=== PATIENT | male | born 1955 | race Caucasian/White ===

== ENCOUNTER 2019-06-01 12:34 | Emergency (ER) | payer BC, MEDICARE ==
[2019-06-01] MEDS ORDERED: Zofran 4 MG/2 ML VIAL IV ONE (12:37)
[2019-06-01] MEDS ORDERED: Sodium Chloride 0.9% 1000 ML 1,000 ML IV STA ×2 (12:37→15:08)
--- NOTE | 2019-06-01 12:37 | ERPHSYRPT ---
- History of Present Illness Time Seen by Provider: 06/01/19 12:36 Source: patient Exam Limitations: no limitations Physician History: 64 y/o white male presents with dizziness, vomiting and weakness since this am. pt was fine last pm. pt woke up and he was still but room was spinning. pt vomited several times this am. pt denies cp, denies soa, denies abd pain. never had this before. did not hit her head. pt went to walk in clinic and had a vagal reaction. pt brought to ED. pts cardiac cath 4 years ago was normal. pt is feeling well now and dizziness gone. Timing/Duration: today Severity: moderate Character of Deficits: new weakness (generalized) Deficits: no difficulties Baseline/Normal Cognition: alert oriented x 3 Current Cognition: alert oriented x 3 Baseline Gait: walks w/o assistance Associated Symptoms: nausea, vomiting, weakness, other (dizziness) Allergies/Adverse Reactions: prednisone Adverse Reaction (Intermediate, Verified 06/01/19 12:48) Hx Tetanus, Diphtheria Vaccination/Date Given: No Hx Influenza Vaccination/Date Given: No Hx Pneumococcal Vaccination/Date Given: No - Review of Systems Constitutional: No Symptoms Eyes: No Symptoms Ears, Nose, & Throat: No Symptoms Respiratory: No Symptoms Cardiac: No Symptoms Abdominal/Gastrointestinal: No Symptoms Genitourinary Symptoms: No Symptoms Musculoskeletal: No Symptoms Skin: No Symptoms Neurological: Dizziness Psychological: No Symptoms Endocrine: No Symptoms Hematologic/Lymphatic: No Symptoms Immunological/Allergic: No Symptoms All Other Systems: Reviewed and Negative - Past Medical History Pertinent Past Medical History: No Neurological History: No Pertinent History ENT History: No Pertinent History Cardiac History: No Pertinent History Respiratory History: No Pertinent History Endocrine Medical History: No Pertinent History Musculoskeletal History: No Pertinent History GI Medical History: No Pertinent History History: No Pertinent History Psycho-Social History: No Pertinent History Male Reproductive Disorders: No Pertinent History - Past Surgical History Past Surgical History: Yes Neuro Surgical History: No Pertinent History Cardiac: No Pertinent History, Cardiac Catheterization Respiratory: No Pertinent History Gastrointestinal: No Pertinent History Genitourinary: No Pertinent History Musculoskeletal: Orthopedic Surgery Male Surgical History: No Pertinent History Other Surgical History: right shoulder - Social History Smoking Status: Never smoker Exposure to second hand smoke: No Drug Use: none Patient Lives Alone: No - Nursing Vital Signs Nursing Vital Signs: Initial Vital Signs Temperature 97.0 F 06/01/19 12:36 Pulse Rate 78 08/13/19 12:36 Respiratory Rate 22 06/01/19 12:36 Blood Pressure 132/87 06/01/19 12:36 O2 Sat by Pulse Oximetry 97 06/01/19 12:36 Pain Scale Pain Intensity 0 - [place] Coma Scale Best Eye Response (Roberta): (4) open spontaneously Best Verbal Response (Roberta): (5) oriented Best Motor Response ([place]): (6) obeys commands Roberta Total: 15 - Physical Exam General Appearance: no apparent distress, alert, anxiety Eye Exam: bilateral eye: normal inspection, PERRL, EOMI Ears, Nose, Throat Exam: normal ENT inspection, moist mucous membranes Neck Exam: normal inspection, non-tender, supple, full range of motion Respiratory: normal breath sounds, lungs clear, airway intact, No chest tenderness, No respiratory distress Cardiovascular: regular rate/rhythm, normal heart sounds, normal peripheral pulses Gastrointestinal: soft, normal bowel sounds, No tenderness Rectal Exam: not done Back Exam: normal inspection, normal range of motion, No CVA tenderness, No vertebral tenderness Extremity Exam: normal inspection, normal range of motion, pelvis stable Mental Status: alert, oriented x 3, cooperative consulting technical manager Exam: normal hearing, normal speech, PERRL Coordination/Gait: normal finger to nose, normal gait, normal cerebellar function Motor/Sensory: no motor deficit, no sensory deficit, no pronator drift Skin Exam: normal color, warm, dry SpO2 Interpretation: normal O2 Delivery: Room Air - Course Nursing assessment & vital signs reviewed: Yes EKG Interpreted by Me: RATE (78), Sinus Rhythm, NORMAL AXIS, NORMAL INTERVALS, NORMAL QRS, Other (comparison 05/29/11 no changes. ) Ordered Tests: Active Orders 24 hr Category Date Time Status Tipple Mechanic STAT Care 06/01/19 12:38 Active EKG-ER Only STAT Care 06/01/19 12:37 Active IV Insertion STAT Care 06/01/19 12:37 Active HEAD WITHOUT CONTRAST [CT] Stat Exams 06/01/19 12:37 Completed CBC W DIFF Stat Lab 06/01/19 12:35 Completed CMP Stat Lab 06/01/19 12:35 Completed Glucose,Critical Care Urgent Lab 06/01/19 12:37 Completed MAGNESIUM Stat Lab 06/01/19 12:35 Completed TROPONIN Q3H Lab 06/01/19 12:35 Completed TROPONIN Q3H Lab 06/01/19 15:45 Ordered TROPONIN Q3H Lab 06/01/19 18:45 Ordered TROPONIN Q3H Lab 06/01/19 21:45 Ordered TROPONIN Q3H Lab 06/02/19 00:45 Ordered UA W/RFX UR CULTURE Stat Lab 06/01/19 14:15 Completed Medication Summary Discontinued Medications Generic Name Dose Route Start Last Admin Trade Name Vaishnavi PRN Reason Stop Dose Admin Sodium Chloride 1,000 mls @ 999 mls/hr 06/01/19 12:37 06/01/19 13:58 Sodium Chloride 0.9% 1000 Ml IV 06/01/19 13:37 Infused .Q1H1M STA Infusion Ondansetron HCl 4 mg 06/01/19 12:37 06/01/19 12:57 Zofran 4 Mg/2 Ml Vial IV 06/01/19 12:38 4 mg STAT ONE Administration Lab/Rad Data: Laboratory Result Diagrams 06/01/19 12:35 06/01/19 12:35 Laboratory Results 06/01/19 06/01/19 06/01/19 Range/Units 14:15 12:37 12:35 WBC (4.0-10.5) K/mm3 RBC (4.1-5.6) M/mm3 Hgb (12.5-18.0) gm/dl Hct (42-50) % MCV (78-100) fl MCH (26-32) pg MCHC (32-36) g/dl RDW (11.5-14.0) % Plt Count (150-450) K/mm3 MPV (6-9.5) fl Gran % (36.0-66.0) % Eos # (Auto) (0-0.5) Absolute Lymphs (auto) (1.0-4.6) Absolute Monos (auto) (0.0-1.3) Lymphocytes % (24.0-44.0) % Monocytes % (0.0-12.0) % Eosinophils % (0.00-5.0) % Basophils % (0.0-0.4) % Absolute Granulocytes (1.4-6.9) Basophils # (0-0.4) Sodium (137-145) mmol/L Potassium (3.5-5.1) mmol/L Chloride (98-107) mmol/L Carbon Dioxide (22-30) mmol/L Anion Gap (5-15) MEQ/L BUN (9-20) mg/dL Creatinine (0.66-1.25) mg/dL Estimated GFR ML/MIN Glucose 126 H (74-106) mg/dL Calcium (8.4-10.2) mg/dL Magnesium (1.6-2.3) mg/dL Total Bilirubin (0.2-1.3) mg/dL AST (17-59) U/L ALT (0-50) U/L Alkaline Phosphatase (38-126) U/L Troponin I < 0.012 (0.000-0.034) ng/mL Serum Total Protein (6.3-8.2) g/dL Albumin (3.5-5.0) g/dL Urine Color YELLOW (YELLOW) Urine Appearance CLEAR (CLEAR) Urine pH 9.0 (5-6) Ur Specific Whitney 1.011 (1.005-1.025) Urine Protein NEGATIVE (Negative) Urine Ketones TRACE (NEGATIVE) Urine Blood NEGATIVE (0-5) Frederick/ul Urine Nitrite NEGATIVE (NEGATIVE) Urine Bilirubin NEGATIVE (NEGATIVE) Urine Urobilinogen NEGATIVE (0-1) mg/dL Ur Leukocyte Esterase NEGATIVE (NEGATIVE) Urine WBC (Auto) 0-2 (0-5) /HPF Urine RBC (Auto) NONE (0-2) /HPF U Epithel Cells (Auto) NONE (FEW) /HPF Urine Bacteria (Auto) NONE (NEGATIVE) /HPF Urine Mucus (Auto) SLIGHT (NEGATIVE) /HPF Urine Culture Reflexed NO (NO) Urine Glucose 50 (NEGATIVE) mg/dL 06/01/19 06/01/19 Range/Units 12:35 12:35 WBC 11.5 H (4.0-10.5) K/mm3 RBC 5.60 (4.1-5.6) M/mm3 Hgb 17.1 (12.5-18.0) gm/dl Hct 48.1 (42-50) % MCV 85.9 (78-100) fl MCH 30.5 (26-32) pg MCHC 35.6 (32-36) g/dl RDW 13.5 (11.5-14.0) % Plt Count 245 (150-450) K/mm3 MPV 10.0 H (6-9.5) fl Gran % 78.8 H (36.0-66.0) % Eos # (Auto) 0.04 (0-0.5) Absolute Lymphs (auto) 1.73 (1.0-4.6) Absolute Monos (auto) 0.63 (0.0-1.3) Lymphocytes % 15.1 L (24.0-44.0) % Monocytes % 5.5 (0.0-12.0) % Eosinophils % 0.3 (0.00-5.0) % Basophils % 0.3 (0.0-0.4) % Absolute Granulocytes 9.03 H (1.4-6.9) Basophils # 0.03 (0-0.4) Sodium 142 (137-145) mmol/L Potassium 4.2 (3.5-5.1) mmol/L Chloride 108 H (98-107) mmol/L Carbon Dioxide 25 (22-30) mmol/L Anion Gap 12.6 (5-15) MEQ/L BUN 19 (9-20) mg/dL Creatinine 0.70 (0.66-1.25) mg/dL Estimated GFR > 60.0 ML/MIN Glucose 129 H (74-106) mg/dL Calcium 9.8 (8.4-10.2) mg/dL Magnesium 2.0 (1.6-2.3) mg/dL Total Bilirubin 1.10 (0.2-1.3) mg/dL AST 37 (17-59) U/L ALT 45 (0-50) U/L Alkaline Phosphatase 102 (38-126) U/L Troponin I (0.000-0.034) ng/mL Serum Total Protein 8.2 (6.3-8.2) g/dL Albumin 4.4 (3.5-5.0) g/dL Urine Color (YELLOW) Urine Appearance (CLEAR) Urine pH (5-6) Ur Specific Whitney (1.005-1.025) Urine Protein (Negative) Urine Ketones (NEGATIVE) Urine Blood (0-5) Frederick/ul Urine Nitrite (NEGATIVE) Urine Bilirubin (NEGATIVE) Urine Urobilinogen (0-1) mg/dL Ur Leukocyte Esterase (NEGATIVE) Urine WBC (Auto) (0-5) /HPF Urine RBC (Auto) (0-2) /HPF U Epithel Cells (Auto) (FEW) /HPF Urine Bacteria (Auto) (NEGATIVE) /HPF Urine Mucus (Auto) (NEGATIVE) /HPF Urine Culture Reflexed (NO) Urine Glucose (NEGATIVE) mg/dL - Progress Progress: improved, re-examined Progress Note: 06/01/19 15:00 pt states no cp, no soa, no abd pain, no dizziness and no nausea. pt wants to go home. Counseled pt/family regarding: lab results, diagnosis, need for follow-up, rad results - Departure Departure Disposition: Home Clinical Impression: Dizziness, Vomiting Condition: Stable Critical Care Time: No Referrals: JOSÉ SILVA [ACTIVE STAFF] - Additional Instructions: drink plenty of fluids. return to ED if symptoms recur. follow up with primary doctor tomorrow for further management Prescriptions: Ondansetron ODT 4 MG [Zofran Odt 4 mg] 4 mg PO Q6H PRN PRN #10 tab.rapdis PRN Reason: Vomiting
[2019-06-01 12:53] LABS: BASOPHIL % 0.3 % (0.0-0.4); Basophil (Absolute #) 0.03 (0-0.4); Eosinophil % 0.3 % (0.00-5.0); Eosinophil (Absolute #) 0.04 (0-0.5); Granulocyte Absolute (ANC) 9.03 (1.4-6.9); Granulocytes % 78.8 % (36.0-66.0); Hematocrit 48.1 % (42-50); Hemoglobin 17.1 gm/dl (12.5-18.0); Lymphocyte (Absolute #) 1.73 (1.0-4.6); Lymphocytes % 15.1 % (24.0-44.0); Mean Cell Volume 85.9 fl (78-100); Mean Corpuscular Hemoglobin 30.5 pg (26-32); Mean Corpuscular Hgb Concent. 35.6 g/dl (32-36); Monocyte (Absolute #) 0.63 (0.0-1.3); Monocytes % 5.5 % (0.0-12.0); Platelet Count 245 K/mm3 (150-450); Red Cell Distribution Width 13.5 % (11.5-14.0); White Blood Count 11.5 K/mm3 (4.0-10.5)
[2019-06-01 13:02] LABS: ALBUMIN 4.4 g/dL (3.5-5.0); ALKALINE PHOSPHATASE 102 U/L (38-126); ANION GAP 12.6 MEQ/L (5-15); BLOOD UREA NITROGEN 19 mg/dL (9-20); CHLORIDE 108 mmol/L (98-107); Calcium 9.8 mg/dL (8.4-10.2); Carbon Dioxide 25 mmol/L (22-30); Glucose 129 mg/dL (74-106); Potassium 4.2 mmol/L (3.5-5.1); SGOT/AST 37 U/L (17-59); SGPT/ALT 45 U/L (0-50); SODIUM 142 mmol/L (137-145); Total Protein 8.2 g/dL (6.3-8.2)
--- NOTE | 2019-06-01 13:11 | XRAY ---
Indication: Dizziness and vomiting. Multiple contiguous axial images obtained through the head without contrast. Comparison: May 29, 2011. Again normal appearing brain parenchyma, ventricles, and bony calvarium. Visualized paranasal sinuses and mastoid air cells are clear. Impression: Normal CT head without contrast exam. CT DI 68.51
[2019-06-01 14:23] LABS: Appearance CLEAR (CLEAR); Bilirubin NEGATIVE (NEGATIVE); Blood NEGATIVE Ery/ul (0-5); Glucose 50 mg/dL (NEGATIVE); Ketones TRACE (NEGATIVE); Leukocyte Esterase NEGATIVE (NEGATIVE); Mucus SLIGHT /HPF (NEGATIVE); Nitrite NEGATIVE (NEGATIVE); Protein,Urine Dip NEGATIVE (Negative); Specific Gravity 1.011 (1.005-1.025); Urobilinogen NEGATIVE mg/dL (0-1); WBC 0-2 /HPF (0-5)
[2019-06-01] MEDS ORDERED: ANTIVERT 25 MG PO ONE (15:08)
[2019-06-01] MEDS ORDERED: Sodium Chloride 0.9% 1000 ML 1,000 ML ONE (15:13)
[2019-06-01] MEDS ORDERED: ANTIVERT 25 MG ONE (15:13)
[2019-06-01 18:23] VITALS: BP 130/92; PULSE 85; O2SAT 96
== END 2019-06-01 18:47 | disposition home or self-care (01) ==
LOC: ED 12:34
DX: R42 Dizziness and giddiness (principal); R11.10 Vomiting, unspecified
CPT/HCPCS: 36000; 36415; 70450; 80053; 81001; 82947; 82962; 83735; 84484; 85025; 93005; 93041; 96360; 96361; 96374; 99285; J2405; A9270-GY

== ENCOUNTER 2021-09-06 00:15 | Observation (INO) | payer MEDICARE ==
--- NOTE | 2021-09-06 00:23 | ERPHSYRPT ---
- History of Present Illness Time Seen by Provider: 09/06/21 00:27 Historian: patient Exam Limitations: no limitations Physician History: Patient is a 66-year-old male presents to our ED with complaints of substernal chest pain. Chest pain started just prior to arrival while he was sleeping. Pain was initially 8 out of 10. However upon arrival pain had decreased to 4 out of 10. Patient took Tums prior to arrival. No associated nausea or vomiting. No diaphoresis. No rash. No trauma no fever. Patient voices no other complaints concerns at this time. Timing/Duration: today Activities at Onset: none Quality: sharpness Location: substernal Chest Pain Radiation: no radiation Severity of Pain-Max: moderate Severity of Pain-Current: mild Modifying Factors: Improves With: nothing Associated Symptoms: No nausea, No vomiting, No shortness of breath, No cough, No hurts to breathe, No diaphoresis, No headache, No dizziness, No edema Prior Chest Pain/Cardiac Workup: no prior chest pain Nitro Today/Relief: no nitro taken today Aspirin Treatment Today: no aspirin today Allergies/Adverse Reactions: prednisone Adverse Reaction (Intermediate, Verified 09/06/21 02:39) Home Medications: No Reportable Medications [No Reported Medications] 09/06/21 [History] Hx Tetanus, Diphtheria Vaccination/Date Given: No Hx Influenza Vaccination/Date Given: No Hx Pneumococcal Vaccination/Date Given: No - Review of Systems Constitutional: No Symptoms, No Fever, No Chills Eyes: No Symptoms Ears, Nose, & Throat: No Symptoms Respiratory: No Symptoms, No Cough, No Dyspnea Cardiac: No Symptoms, No Chest Pain, No Edema, No Syncope Abdominal/Gastrointestinal: No Symptoms, No Abdominal Pain, No Nausea, No Vomiting, No Diarrhea Genitourinary Symptoms: No Symptoms, No Dysuria Musculoskeletal: No Symptoms, No Back Pain, No Neck Pain Skin: No Symptoms, No Rash Neurological: No Symptoms, No Dizziness, No Focal Weakness, No Sensory Changes Psychological: No Symptoms Endocrine: No Symptoms Hematologic/Lymphatic: No Symptoms Immunological/Allergic: No Symptoms All Other Systems: Reviewed and Negative - Past Medical History Pertinent Past Medical History: No Neurological History: No Pertinent History ENT History: No Pertinent History Cardiac History: No Pertinent History Respiratory History: No Pertinent History Endocrine Medical History: No Pertinent History Musculoskeletal History: No Pertinent History GI Medical History: No Pertinent History History: No Pertinent History Psycho-Social History: No Pertinent History Male Reproductive Disorders: No Pertinent History - Past Surgical History Past Surgical History: Yes Neuro Surgical History: No Pertinent History Cardiac: No Pertinent History, Cardiac Catheterization Respiratory: No Pertinent History Gastrointestinal: No Pertinent History Genitourinary: No Pertinent History Musculoskeletal: Orthopedic Surgery Male Surgical History: No Pertinent History Other Surgical History: right shoulder - Social History Smoking Status: Never smoker Exposure to second hand smoke: No Drug Use: none Patient Lives Alone: No - Nursing Vital Signs Nursing Vital Signs: Initial Vital Signs Temperature 97.7 F 09/06/21 00:16 Pulse Rate 75 09/06/21 00:16 Respiratory Rate 20 09/06/21 00:16 Blood Pressure 155/91 09/06/21 00:16 O2 Sat by Pulse Oximetry 98 09/06/21 00:16 Pain Scale Pain Intensity 0 - Physical Exam General Appearance: no apparent distress, alert Eye Exam: PERRL/EOMI, eyes nml inspection Ears, Nose, Throat Exam: normal ENT inspection, TMs normal, pharynx normal, moist mucous membranes Neck Exam: normal inspection, non-tender, supple, full range of motion Respiratory Exam: normal breath sounds, lungs clear, airway intact, No chest tenderness, No respiratory distress Cardiovascular Exam: regular rate/rhythm, normal heart sounds, normal peripheral pulses Gastrointestinal/Abdomen Exam: soft, No tenderness, No mass Back Exam: normal inspection, No CVA tenderness, No vertebral tenderness Extremity Exam: normal inspection, normal range of motion Neurologic Exam: alert, oriented x 3, cooperative, normal mood/affect, sensation nml, No motor deficits Skin Exam: normal color, warm, dry Lymphatic Exam: No adenopathy SpO2 Interpretation: normal SpO2: 98 O2 Delivery: Room Air - Course Nursing assessment & vital signs reviewed: Yes EKG Interpreted by Me: RATE (73), Sinus Rhythm, NORMAL AXIS, NORMAL INTERVALS - Radiology Exams Chest X-ray Interpretation: Interpreted by me (Normal chest x-ray) Ordered Tests: Active Orders 24 hr Category Date Time Status Training And Development Assistant STAT Care 09/06/21 00:23 Active EKG-ER Only STAT Care 09/06/21 00:22 Active IV Insertion STAT Care 09/06/21 00:22 Active Pulse Oximetry (ED) STAT Care 09/06/21 00:22 Active CHEST 1 VIEW (PORTABLE) Stat Exams 09/06/21 00:23 Taken CBC W DIFF Stat Lab 09/06/21 00:22 Completed CMP Stat Lab 09/06/21 00:22 Completed Manual Differential NC Stat Lab 09/06/21 00:22 Completed TROPONIN Q3H Lab 09/06/21 00:22 Completed TROPONIN Q3H Lab 09/06/21 03:30 Ordered TROPONIN Q3H Lab 09/06/21 06:30 Ordered TROPONIN Q3H Lab 09/06/21 09:30 Ordered TROPONIN Q3H Lab 09/06/21 12:30 Ordered Transfer Order Routine Transfer 09/06/21 Ordered Medication Summary Discontinued Medications Generic Name Dose Route Start Last Admin Trade Name Freq PRN Reason Stop Dose Admin Aspirin 324 mg 09/06/21 00:28 09/06/21 00:55 Aspirin 81 Mg Tab.Chew PO 09/06/21 00:29 324 mg STAT ONE Administration Aspirin Confirm 09/06/21 00:54 Aspirin 81 Mg Tab.Chew Administered 09/06/21 00:55 Dose 324 mg .ROUTE .STK-MED ONE Nitroglycerin 1 gm 09/06/21 00:29 09/06/21 00:55 Nitroglycerin 1 Gm Packet TOP 09/06/21 00:30 1 gm STAT ONE Administration Nitroglycerin Confirm 09/06/21 00:54 Nitroglycerin 1 Gm Packet Administered 09/06/21 00:55 Dose 1 gm .ROUTE .STK-MED ONE Lab/Rad Data: Laboratory Result Diagrams 09/06/21 00:22 09/06/21 00:22 Laboratory Results 09/06/21 09/06/21 09/06/21 Range/Units 01:40 00:22 00:22 WBC (4.0-10.5) K/mm3 RBC (4.1-5.6) M/mm3 Hgb (12.5-18.0) gm/dl Hct (42-50) % MCV (78-100) fl MCH (26-32) pg MCHC (32-36) g/dl RDW (11.5-14.0) % Plt Count (150-450) K/mm3 MPV (7.5-11.0) fl Segmented Neutrophils (36.-66.) % Lymphocytes (Manual) (24-44) % Monocytes (Manual) (0.0-12.0) % Eosinophils (Manual) (0.00-3.0) % Basophils (Manual) (0.0-1.0) % Atypical Lymphocytes % Platelet Estimate (NORMAL) RBC Morphology Sodium 137 (137-145) mmol/L Potassium 4.1 (3.5-5.1) mmol/L Chloride 106 (98-107) mmol/L Carbon Dioxide 21 L (22-30) mmol/L Anion Gap 14.7 (5-15) MEQ/L BUN 17 (9-20) mg/dL Creatinine 0.60 L (0.66-1.25) mg/dL Estimated GFR > 60.0 ML/MIN Glucose 112 H (74-106) mg/dL Calcium 8.9 (8.4-10.2) mg/dL Total Bilirubin 1.00 (0.2-1.3) mg/dL AST 60 H (17-59) U/L ALT 58 H (0-50) U/L Alkaline Phosphatase 75 (38-126) U/L Troponin I < 0.012 (0.000-0.034) ng/mL Serum Total Protein 7.7 (6.3-8.2) g/dL Albumin 4.2 (3.5-5.0) g/dL Influenza Type A Ag NEGATIVE (NEGATIVE) Influenza Type B Ag NEGATIVE (NEGATIVE) RSV (PCR) NEGATIVE (Negative) SARS-CoV-2 (PCR) NEGATIVE (NEGATIVE) 09/06/21 Range/Units 00:22 WBC 7.8 (4.0-10.5) K/mm3 RBC 5.14 (4.1-5.6) M/mm3 Hgb 16.6 (12.5-18.0) gm/dl Hct 45.1 (42-50) % MCV 87.7 (78-100) fl MCH 32.3 H (26-32) pg MCHC 36.8 H (32-36) g/dl RDW 12.9 (11.5-14.0) % Plt Count 281 (150-450) K/mm3 MPV 10.0 (7.5-11.0) fl Segmented Neutrophils 69 H (36.-66.) % Lymphocytes (Manual) 25 (24-44) % Monocytes (Manual) 2 (0.0-12.0) % Eosinophils (Manual) 2 (0.00-3.0) % Basophils (Manual) 1 (0.0-1.0) % Atypical Lymphocytes 1 % Platelet Estimate NORMAL (NORMAL) RBC Morphology NORMAL Sodium (137-145) mmol/L Potassium (3.5-5.1) mmol/L Chloride (98-107) mmol/L Carbon Dioxide (22-30) mmol/L Anion Gap (5-15) MEQ/L BUN (9-20) mg/dL Creatinine (0.66-1.25) mg/dL Estimated GFR ML/MIN Glucose (74-106) mg/dL Calcium (8.4-10.2) mg/dL Total Bilirubin (0.2-1.3) mg/dL AST (17-59) U/L ALT (0-50) U/L Alkaline Phosphatase (38-126) U/L Troponin I (0.000-0.034) ng/mL Serum Total Protein (6.3-8.2) g/dL Albumin (3.5-5.0) g/dL Influenza Type A Ag (NEGATIVE) Influenza Type B Ag (NEGATIVE) RSV (PCR) (Negative) SARS-CoV-2 (PCR) (NEGATIVE) - Progress Progress: improved Air Movement: good Progress Note: Case discussed with Dr. Guan who accepts admission to observation. Plan of care discussed with patient. He agrees to admission [facility] for further evaluation and treatment of chest pain.. Patient is Covid negative. Portions of this note were created with voice recognition technology. There may be grammatical, spelling, punctuation or sound alike errors 09/06/21 02:41 09/06/21 02:43 Blood Culture(s) Obtained: No Antibiotics given: No Discussed with : Deborah Will see patient in: hospital (observation) Counseled pt/family regarding: lab results, diagnosis, rad results - Departure Departure Disposition: Observation Clinical Impression: ACS (acute coronary syndrome), Chest pain Condition: Stable Critical Care Time: No Referrals: PHILPI GUAN MD [Primary Care Provider] - Follow up/PCP as directed Additional Instructions: Discharge/Care Plan GIRISH PANTOJA was seen on 09/06/21 in the Emergency Room. The patient was counseled regarding Diagnosis,Lab results, Imaging studies, need for follow up and when to return to the Emergency Room. Prescriptions given: Discharge Note I have spoken with the patient and/or caregivers. I have explained the patient's condition, diagnosis and treatment plan based on the information available to me at this time. I have answered the patient's and/or caregiver's questions and addressed any concerns. The patient and/or caregivers have as good understanding of the patient's diagnosis, condition and treatment plan as can be expected at this point. The vital signs have been stable. The patient's condition is stable and appropriate for discharge from the emergency department. The patient will pursue further outpatient evaluation with the primary care physician or other designated or consulting physician as outlined in the discharge instructions. The patient and/or caregivers are agreeable to this plan of care and follow-up instructions have been explained in detail. The patient and/or caregivers have received these instruction. The patient/and or caregivers are aware that any significant change in condition or worsening of symptoms should prompt an immediate return to this or the closest emergency department or call 911.
[2021-09-06] MEDS ORDERED: BABY ASPIRIN 81 MG CHEW PO ONE (00:28)
[2021-09-06] MEDS ORDERED: NITRO-BID 2% UD PACKETS TOP ONE (00:29)
[2021-09-06 00:39] LABS: Hematocrit 45.1 % (42-50); Hemoglobin 16.6 gm/dl (12.5-18.0); Mean Cell Volume 87.7 fl (78-100); Mean Corpuscular Hemoglobin 32.3 pg (26-32); Mean Corpuscular Hgb Concent. 36.8 g/dl (32-36); Platelet Count 281 K/mm3 (150-450); Red Blood Count 5.14 M/mm3 (4.1-5.6); Red Cell Distribution Width 12.9 % (11.5-14.0); White Blood Count 7.8 K/mm3 (4.0-10.5)
[2021-09-06 00:50] LABS: ALBUMIN 4.2 g/dL (3.5-5.0); ALKALINE PHOSPHATASE 75 U/L (38-126); ANION GAP 14.7 MEQ/L (5-15); BLOOD UREA NITROGEN 17 mg/dL (9-20); CHLORIDE 106 mmol/L (98-107); Calcium 8.9 mg/dL (8.4-10.2); Carbon Dioxide 21 mmol/L (22-30); EST GLOMERULAR FILTRATION RATE > 60.0 ML/MIN; Glucose 112 mg/dL (74-106); Potassium 4.1 mmol/L (3.5-5.1); SGOT/AST 60 U/L (17-59); SGPT/ALT 58 U/L (0-50); SODIUM 137 mmol/L (137-145); Total Protein 7.7 g/dL (6.3-8.2)
[2021-09-06] MEDS ORDERED: NITRO-BID 2% UD PACKETS ONE (00:54)
[2021-09-06] MEDS ORDERED: BABY ASPIRIN 81 MG CHEW ONE (00:54)
[2021-09-06 01:20] LABS: ATYPICAL LYMPHS 1 %; Basophil 1 % (0.0-1.0); Eosinophil 2 % (0.00-3.0); Lymphocytes 25 % (24-44); Monocyte 2 % (0.0-12.0); Neutrophils 69 % (36.-66.); Platelet Estimate NORMAL (NORMAL); Total Cells Counted 100
[2021-09-06 02:23] LABS: INFLUENZA A NEGATIVE (NEGATIVE); INFLUENZA B NEGATIVE (NEGATIVE); RESPIRATORY SYNCTIAL VIRUS NEGATIVE (Negative); SARS-CoV-2 Xpert Express NEGATIVE (NEGATIVE)
[2021-09-06] MEDS ORDERED: TYLENOL 325 MG PO PRN (02:57)
[2021-09-06] MEDS ORDERED: MAALOX ES 30 ML UNIT DOSE PO PRN (02:57)
[2021-09-06] MEDS ORDERED: MILK OF MAGNESIA 30 ML PO PRN (02:57)
[2021-09-06] MEDS ORDERED: Zofran 4 MG/2 ML VIAL IV PRN (02:57)
[2021-09-06] MEDS ORDERED: Senokot-S Tablet PO PRN (02:57)
[2021-09-06 06:56] LABS: Risk Ratio 9.6
--- NOTE | 2021-09-06 08:06 | PCM.SSS ---
History of Present Illness - Chief Complaint Chief Complaint: Chest Pain History of Present Illness: is a 66 year old male with no known medical problems, he awoke last with sudden onset of sharp chest pain, it was substernal and nonradiating. no nausea, vomiting, shortness of breath or diaphoresis, pain has nearly resolved since admission. He has no history of cad. - Review of Systems Constitutional: No Fever, No Chills Respiratory: No Cough, No Short Of Breath Cardiac: Chest Pain Abdominal/Gastrointestinal: No Abdominal Pain, No Nausea, No Vomiting, No Diarrhea Musculoskeletal: No Back Pain, No Neck Pain Skin: No Rash All Other Systems: Reviewed and Negative Medications & Allergies Home Medications: Home Medication List Fenofibrate,Micronized 145 mg* [Tricor 145 MG] 145 mg PO DAILY #30 tablet 09/06/21 [Rx] Allergies/Adverse Reactions: Allergies Allergy/AdvReac Type Severity Reaction Status Date / Time prednisone AdvReac Intermediate Verified 09/06/21 02:39 - Past Medical History Past Medical History: Yes Neurological History: No Pertinent History ENT History: No Pertinent History Cardiac History: Angina Respiratory History: No Pertinent History Endocrine Medical History: No Pertinent History Musculoskelatal History: Arthritis, Fractures GI Medical History: No Pertinent History History: No Pertinent History Pyscho-Social History: No Pertinent History Male Reproductive Disorders: No Pertinent History - Past Surgical History Past Surgical History: Yes Neuro Surgical History: No Pertinent History Cardiac History: Cardiac Catheterization Respiratory Surgery: No Pertinent History GI Surgical History: Hernia Repair Genitourinary Surgical Hx: No Pertinent History Musculskeletal Surgical Hx: Other Male Surgical History: No Pertinent History Other Surgical History: Carpal Tunnel Surgery - Social History Smoking Status: Never smoker Exposure to second hand smoke: No Alcohol: None Drug Use: none - Physical Exam Vital Signs: Vital Signs - 24 hr Temp Pulse Pulse Resp BP Pulse Ox 09/06/21 03:52 96 09/06/21 03:03 97 F 61 16 128/89 96 09/06/21 02:45 98 09/06/21 02:00 70 18 154/97 95 09/06/21 01:16 72 18 146/91 98 09/06/21 00:54 72 09/06/21 00:22 97 09/06/21 00:16 97.7 F 75 20 155/91 98 General Appearance: no apparent distress, alert Neurologic Exam: alert, oriented x 3, cooperative, normal mood/affect, nml cerebellar function, nml station & gait, sensation nml, No motor deficits Respiratory Exam: normal breath sounds, lungs clear, No respiratory distress Cardiovascular Exam: regular rate/rhythm, normal heart sounds, normal peripheral pulses Gastrointestinal/Abdomen Exam: soft, normal bowel sounds, No tenderness, No mass Extremity Exam: normal inspection, normal range of motion, pelvis stable Skin Exam: normal color, warm, dry, No rash Results - Labs Lab/Micro Results: Lab Results-Last 24 Hours 09/06/21 09/06/21 09/06/21 Range/Units 00:22 00:22 00:22 WBC 7.8 (4.0-10.5) K/mm3 RBC 5.14 (4.1-5.6) M/mm3 Hgb 16.6 (12.5-18.0) gm/dl Hct 45.1 (42-50) % MCV 87.7 (78-100) fl MCH 32.3 H (26-32) pg MCHC 36.8 H (32-36) g/dl RDW 12.9 (11.5-14.0) % Plt Count 281 (150-450) K/mm3 MPV 10.0 (7.5-11.0) fl Segmented Neutrophils 69 H (36.-66.) % Lymphocytes (Manual) 25 (24-44) % Monocytes (Manual) 2 (0.0-12.0) % Eosinophils (Manual) 2 (0.00-3.0) % Basophils (Manual) 1 (0.0-1.0) % Atypical Lymphocytes 1 % Platelet Estimate NORMAL (NORMAL) RBC Morphology NORMAL Sodium 137 (137-145) mmol/L Potassium 4.1 (3.5-5.1) mmol/L Chloride 106 (98-107) mmol/L Carbon Dioxide 21 L (22-30) mmol/L Anion Gap 14.7 (5-15) MEQ/L BUN 17 (9-20) mg/dL Creatinine 0.60 L (0.66-1.25) mg/dL Estimated GFR > 60.0 ML/MIN Glucose 112 H (74-106) mg/dL POC Glucometer (74 to 106) mg/dL Calcium 8.9 (8.4-10.2) mg/dL Total Bilirubin 1.00 (0.2-1.3) mg/dL AST 60 H (17-59) U/L ALT 58 H (0-50) U/L Alkaline Phosphatase 75 (38-126) U/L Troponin I < 0.012 (0.000-0.034) ng/mL Serum Total Protein 7.7 (6.3-8.2) g/dL Albumin 4.2 (3.5-5.0) g/dL Triglycerides (30-150) mg/dL Cholesterol (50-200) mg/dL LDL Cholesterol (30-100) mg/dL HDL Cholesterol (40-60) mg/dL Heart Disease Risk Ratio Influenza Type A Ag (NEGATIVE) Influenza Type B Ag (NEGATIVE) RSV (PCR) (Negative) SARS-CoV-2 (PCR) (NEGATIVE) 09/06/21 09/06/21 09/06/21 Range/Units 01:40 03:31 06:15 WBC (4.0-10.5) K/mm3 RBC (4.1-5.6) M/mm3 Hgb (12.5-18.0) gm/dl Hct (42-50) % MCV (78-100) fl MCH (26-32) pg MCHC (32-36) g/dl RDW (11.5-14.0) % Plt Count (150-450) K/mm3 MPV (7.5-11.0) fl Segmented Neutrophils (36.-66.) % Lymphocytes (Manual) (24-44) % Monocytes (Manual) (0.0-12.0) % Eosinophils (Manual) (0.00-3.0) % Basophils (Manual) (0.0-1.0) % Atypical Lymphocytes % Platelet Estimate (NORMAL) RBC Morphology Sodium (137-145) mmol/L Potassium (3.5-5.1) mmol/L Chloride (98-107) mmol/L Carbon Dioxide (22-30) mmol/L Anion Gap (5-15) MEQ/L BUN (9-20) mg/dL Creatinine (0.66-1.25) mg/dL Estimated GFR ML/MIN Glucose (74-106) mg/dL POC Glucometer (74 to 106) mg/dL Calcium (8.4-10.2) mg/dL Total Bilirubin (0.2-1.3) mg/dL AST (17-59) U/L ALT (0-50) U/L Alkaline Phosphatase (38-126) U/L Troponin I < 0.012 < 0.012 (0.000-0.034) ng/mL Serum Total Protein (6.3-8.2) g/dL Albumin (3.5-5.0) g/dL Triglycerides (30-150) mg/dL Cholesterol (50-200) mg/dL LDL Cholesterol (30-100) mg/dL HDL Cholesterol (40-60) mg/dL Heart Disease Risk Ratio Influenza Type A Ag NEGATIVE (NEGATIVE) Influenza Type B Ag NEGATIVE (NEGATIVE) RSV (PCR) NEGATIVE (Negative) SARS-CoV-2 (PCR) NEGATIVE (NEGATIVE) 09/06/21 09/06/21 Range/Units 06:15 07:09 WBC (4.0-10.5) K/mm3 RBC (4.1-5.6) M/mm3 Hgb (12.5-18.0) gm/dl Hct (42-50) % MCV (78-100) fl MCH (26-32) pg MCHC (32-36) g/dl RDW (11.5-14.0) % Plt Count (150-450) K/mm3 MPV (7.5-11.0) fl Segmented Neutrophils (36.-66.) % Lymphocytes (Manual) (24-44) % Monocytes (Manual) (0.0-12.0) % Eosinophils (Manual) (0.00-3.0) % Basophils (Manual) (0.0-1.0) % Atypical Lymphocytes % Platelet Estimate (NORMAL) RBC Morphology Sodium (137-145) mmol/L Potassium (3.5-5.1) mmol/L Chloride (98-107) mmol/L Carbon Dioxide (22-30) mmol/L Anion Gap (5-15) MEQ/L BUN (9-20) mg/dL Creatinine (0.66-1.25) mg/dL Estimated GFR ML/MIN Glucose (74-106) mg/dL POC Glucometer 117 H (74 to 106) mg/dL Calcium (8.4-10.2) mg/dL Total Bilirubin (0.2-1.3) mg/dL AST (17-59) U/L ALT (0-50) U/L Alkaline Phosphatase (38-126) U/L Troponin I (0.000-0.034) ng/mL Serum Total Protein (6.3-8.2) g/dL Albumin (3.5-5.0) g/dL Triglycerides 1102 H (30-150) mg/dL Cholesterol 190 (50-200) mg/dL LDL Cholesterol 65 (30-100) mg/dL HDL Cholesterol 20 L (40-60) mg/dL Heart Disease Risk Ratio 9.6 Influenza Type A Ag (NEGATIVE) Influenza Type B Ag (NEGATIVE) RSV (PCR) (Negative) SARS-CoV-2 (PCR) (NEGATIVE) - Radiology Impressions Radiology Exams & Impressions: Radiology Procedures Category Date Time Status CHEST 1 VIEW (PORTABLE) Stat Exams 09/06/21 00:23 Taken - Other Procedures and Tests Respiratory Therapy 09/06/21 08:30 EKG ROUTINE 09/07/21 05:00 EKG IN AM 09/08/21 05:00 EKG IN AM Assessment/Plan (1) Chest pain Current Visit: Yes Status: Acute Assessment & Plan: continue serial troponins to rule out IN, EKG reviewed and no current of injury is present. history sounds like noncardiac chest pain. in light of markedly elev ated triglycerides will check pancreas enzymes Code(s): R07.9 - CHEST PAIN, UNSPECIFIED (2) Hypertriglyceridemia Current Visit: Yes Status: Acute Assessment & Plan: start fenofibrate Code(s): E78.1 - PURE HYPERGLYCERIDEMIA Hospital Summary - Vitals & Intake/Output Vital Signs: Vital Signs Temperature 97 F 09/06/21 03:03 Pulse Rate 61 09/06/21 03:03 Respiratory Rate 16 09/06/21 03:03 Blood Pressure 128/89 09/06/21 03:03 O2 Sat by Pulse Oximetry 96 09/06/21 03:52 Intake & Output: Intake & Output 09/03/21 09/04/21 09/05/21 09/06/21 11:59 11:59 11:59 11:59 Weight 70.6 kg - Lab Result Diagrams: 09/06/21 00:22 09/06/21 00:22 Lab Results-Last 24 Hrs: Lab Results-Last 24 Hours 09/06/21 09/06/21 09/06/21 Range/Units 00:22 00:22 00:22 WBC 7.8 (4.0-10.5) K/mm3 RBC 5.14 (4.1-5.6) M/mm3 Hgb 16.6 (12.5-18.0) gm/dl Hct 45.1 (42-50) % MCV 87.7 (78-100) fl MCH 32.3 H (26-32) pg MCHC 36.8 H (32-36) g/dl RDW 12.9 (11.5-14.0) % Plt Count 281 (150-450) K/mm3 MPV 10.0 (7.5-11.0) fl Segmented Neutrophils 69 H (36.-66.) % Lymphocytes (Manual) 25 (24-44) % Monocytes (Manual) 2 (0.0-12.0) % Eosinophils (Manual) 2 (0.00-3.0) % Basophils (Manual) 1 (0.0-1.0) % Atypical Lymphocytes 1 % Platelet Estimate NORMAL (NORMAL) RBC Morphology NORMAL Sodium 137 (137-145) mmol/L Potassium 4.1 (3.5-5.1) mmol/L Chloride 106 (98-107) mmol/L Carbon Dioxide 21 L (22-30) mmol/L Anion Gap 14.7 (5-15) MEQ/L BUN 17 (9-20) mg/dL Creatinine 0.60 L (0.66-1.25) mg/dL Estimated GFR > 60.0 ML/MIN Glucose 112 H (74-106) mg/dL POC Glucometer (74 to 106) mg/dL Calcium 8.9 (8.4-10.2) mg/dL Total Bilirubin 1.00 (0.2-1.3) mg/dL AST 60 H (17-59) U/L ALT 58 H (0-50) U/L Alkaline Phosphatase 75 (38-126) U/L Troponin I < 0.012 (0.000-0.034) ng/mL Serum Total Protein 7.7 (6.3-8.2) g/dL Albumin 4.2 (3.5-5.0) g/dL Triglycerides (30-150) mg/dL Cholesterol (50-200) mg/dL LDL Cholesterol (30-100) mg/dL HDL Cholesterol (40-60) mg/dL Heart Disease Risk Ratio Influenza Type A Ag (NEGATIVE) Influenza Type B Ag (NEGATIVE) RSV (PCR) (Negative) SARS-CoV-2 (PCR) (NEGATIVE) 09/06/21 09/06/21 09/06/21 Range/Units 01:40 03:31 06:15 WBC (4.0-10.5) K/mm3 RBC (4.1-5.6) M/mm3 Hgb (12.5-18.0) gm/dl Hct (42-50) % MCV (78-100) fl MCH (26-32) pg MCHC (32-36) g/dl RDW (11.5-14.0) % Plt Count (150-450) K/mm3 MPV (7.5-11.0) fl Segmented Neutrophils (36.-66.) % Lymphocytes (Manual) (24-44) % Monocytes (Manual) (0.0-12.0) % Eosinophils (Manual) (0.00-3.0) % Basophils (Manual) (0.0-1.0) % Atypical Lymphocytes % Platelet Estimate (NORMAL) RBC Morphology Sodium (137-145) mmol/L Potassium (3.5-5.1) mmol/L Chloride (98-107) mmol/L Carbon Dioxide (22-30) mmol/L Anion Gap (5-15) MEQ/L BUN (9-20) mg/dL Creatinine (0.66-1.25) mg/dL Estimated GFR ML/MIN Glucose (74-106) mg/dL POC Glucometer (74 to 106) mg/dL Calcium (8.4-10.2) mg/dL Total Bilirubin (0.2-1.3) mg/dL AST (17-59) U/L ALT (0-50) U/L Alkaline Phosphatase (38-126) U/L Troponin I < 0.012 < 0.012 (0.000-0.034) ng/mL Serum Total Protein (6.3-8.2) g/dL Albumin (3.5-5.0) g/dL Triglycerides (30-150) mg/dL Cholesterol (50-200) mg/dL LDL Cholesterol (30-100) mg/dL HDL Cholesterol (40-60) mg/dL Heart Disease Risk Ratio Influenza Type A Ag NEGATIVE (NEGATIVE) Influenza Type B Ag NEGATIVE (NEGATIVE) RSV (PCR) NEGATIVE (Negative) SARS-CoV-2 (PCR) NEGATIVE (NEGATIVE) 09/06/21 09/06/21 Range/Units 06:15 07:09 WBC (4.0-10.5) K/mm3 RBC (4.1-5.6) M/mm3 Hgb (12.5-18.0) gm/dl Hct (42-50) % MCV (78-100) fl MCH (26-32) pg MCHC (32-36) g/dl RDW (11.5-14.0) % Plt Count (150-450) K/mm3 MPV (7.5-11.0) fl Segmented Neutrophils (36.-66.) % Lymphocytes (Manual) (24-44) % Monocytes (Manual) (0.0-12.0) % Eosinophils (Manual) (0.00-3.0) % Basophils (Manual) (0.0-1.0) % Atypical Lymphocytes % Platelet Estimate (NORMAL) RBC Morphology Sodium (137-145) mmol/L Potassium (3.5-5.1) mmol/L Chloride (98-107) mmol/L Carbon Dioxide (22-30) mmol/L Anion Gap (5-15) MEQ/L BUN (9-20) mg/dL Creatinine (0.66-1.25) mg/dL Estimated GFR ML/MIN Glucose (74-106) mg/dL POC Glucometer 117 H (74 to 106) mg/dL Calcium (8.4-10.2) mg/dL Total Bilirubin (0.2-1.3) mg/dL AST (17-59) U/L ALT (0-50) U/L Alkaline Phosphatase (38-126) U/L Troponin I (0.000-0.034) ng/mL Serum Total Protein (6.3-8.2) g/dL Albumin (3.5-5.0) g/dL Triglycerides 1102 H (30-150) mg/dL Cholesterol 190 (50-200) mg/dL LDL Cholesterol 65 (30-100) mg/dL HDL Cholesterol 20 L (40-60) mg/dL Heart Disease Risk Ratio 9.6 Influenza Type A Ag (NEGATIVE) Influenza Type B Ag (NEGATIVE) RSV (PCR) (Negative) SARS-CoV-2 (PCR) (NEGATIVE) - Radiology Exams Ordered Rad Exams-Entire Visit: Radiology Procedures Category Date Time Status CHEST 1 VIEW (PORTABLE) Stat Exams 09/06/21 00:23 Taken - Procedures and Test Procedures and Tests throughout Hospitalization: Therapy Orders & Screens 09/06/21 08:30 EKG ROUTINE Comment: Diagnosis: Chest Pain 09/07/21 05:00 EKG IN AM Comment: Diagnosis: Chest Pain 09/08/21 05:00 EKG IN AM Comment: Diagnosis: Chest Pain - Discharge Disposition: Home, Self-Care Condition: Stable Prescriptions: New Fenofibrate,Micronized 145 mg* [Tricor 145 MG] 145 mg PO DAILY #30 tablet Follow up with: PHILIP GUAN MD [Primary Care Provider] -
--- NOTE | 2021-09-06 08:46 | XRAY ---
Indication: Chest pain. Comparison: August 29, 2017. Portable chest again demonstrates normal heart and lungs. Bony intact again with mild osteopenia and degenerative changes. No new/acute findings.
[2021-09-06 09:35] LABS: AMYLASE 61 U/L (30-110); LIPASE 98 U/L (23-300)
[2021-09-06] MEDS ORDERED: Tricor 145 MG PO SCH (10:00)
[2021-09-10 16:54] VITALS: BP 104/67; PULSE 67; O2SAT 94
== END 2021-09-06 14:10 | disposition home or self-care (01) ==
LOC: ED 00:15 → MED SURG 02:49
PROVIDERS: ADMIT Family Medicine; ATTEND Family Medicine
DX: R07.9 Chest pain, unspecified (principal); E78.1 Pure hyperglyceridemia; Z20.828 Contact with and (suspected) exposure to other viral communicable diseases
CPT/HCPCS: 0241U; 36000; 36415; 71045; 80053; 80061; 82150; 82947; 83690; 83721; 84484; 85025; 93005; 93041; 93268; 94760; 99285; G0378; A9270-GY

== ENCOUNTER 2022-05-21 06:04 | Day surgery (SDC) | payer MEDICARE ==
[2022-05-21] MEDS ORDERED: Lactated Ringers 1,000 ML IV SCH (07:00)
[2022-05-21] MEDS ORDERED: Xylocaine-Mpf 2% 5 Ml Vial ONE (07:00)
[2022-05-21] MEDS ORDERED: DIPRIVAN 200 MG/20 ML IV ONE (07:00)
[2022-05-21 08:50] VITALS: BP 132/80; PULSE 69; O2SAT 96
--- NOTE | 2022-05-21 09:21 | OP ---
SURGERY DATE/TIME: 05/21/2022 0714 PREOPERATIVE DIAGNOSIS: Screening exam. POSTOPERATIVE DIAGNOSIS: Polyp in the ascending colon. PROCEDURE: Colonoscopy with cold forceps biopsy. SURGEON: Dr. Justen Kennedy. ANESTHESIA: MAC. Medications given by anesthesia department. HISTORY: The patient is a 67-year-old white male presenting now for screening colonoscopy. The patient voiced that he has never had a colon examination previously. The patient was felt the need to have endoscopic evaluation. He was appraised of the risks of the procedure including the risk of perforation, phlebitis, untoward reaction to medication, bleeding and missed lesions. The patient verbalized his understanding and desired to have the procedure performed. DESCRIPTION OF PROCEDURE: The patient was given the medications by the anesthesia department. He had continuous pulse oximetry, ECG monitoring, intermittent blood pressure monitoring during the examination. He was placed in the left lateral decubitus position. A digital rectal examination was performed and revealed normal anal sphincter tone, no masses and normal prostate. The flexible Olympus pediatric colonoscope was used to intubate the rectum. A view of the colon was developed sequentially to the cecum. There was found to be an approximately a 1 cm sessile polyp in the ascending colon which was biopsied using cold biopsy forceps and destroying the lesion. The scope was removed from the patient who tolerated the procedure well and was sent back to OP recovery in good condition. The prep was noted to be fair to good.
== END 2022-05-21 08:30 | disposition home or self-care (01) ==
LOC: SDC 06:04
PROVIDERS: ATTEND Family Medicine
DX: Z12.11 Encounter for screening for malignant neoplasm of colon (principal); D12.2 Benign neoplasm of ascending colon
CPT/HCPCS: J2704

== ENCOUNTER 2023-04-11 22:26 | Emergency (ER) | payer MEDICARE ==
[2023-04-11] MEDS ORDERED: HYDROCODONE-ACETAMIN 2.5-108/5 ML SOLUTION PO ONE (22:27)
--- NOTE | 2023-04-11 22:36 | ERPHSYRPT ---
- History of Present Illness Time Seen by Provider: 04/11/23 22:36 Source: patient Exam Limitations: no limitations Physician History: 67-year-old male presents emergency room after having low oxygen saturations on his home pulse ox. Patient is currently taking cefdinir for pneumonia that was prescribed by his management associate. He uses Symbicort daily and albuterol as need ed for his chronic lung conditions. Patient denies any current shortness of breath, chest pain or swelling. He does report a bothersome cough, but has been unable to get anything of substance up with the cough. He denies any fevers. Timing/Duration: week(s) (1), worse Cough Quality/Degree: moderate, dry cough Possible Cause: occasional episodes Modifying Factors: Improves With: albuterol inhaler. Worsens With: coughing Associated Symptoms: cough, headache, No fever, No chest pain/soreness, No shortness of breath, No wheezing Allergies/Adverse Reactions: prednisone Adverse Reaction (Intermediate, Verified 04/11/23 22:37) makes him "jittery" Home Medications: Fluticasone Propionate [Flonase NASAL] 2 puffs IH UD 05/17/22 [History] Loratadine 10 mg [Claritin 10 mg] 10 mg PO DAILY 05/17/22 [History] Hx Tetanus, Diphtheria Vaccination/Date Given: No Hx Influenza Vaccination/Date Given: No Hx Pneumococcal Vaccination/Date Given: No Travel Risk - Vaccine Status Have you recieved a Covid-19 vaccination: Yes Loader Machine: [employer] - Review of Systems Constitutional: No Symptoms Eyes: No Symptoms Ears, Nose, & Throat: No Symptoms Respiratory: Cough, No Wheezing Cardiac: No Symptoms Abdominal/Gastrointestinal: No Symptoms Musculoskeletal: No Symptoms Skin: No Symptoms Neurological: No Symptoms Psychological: No Symptoms Endocrine: No Symptoms Hematologic/Lymphatic: No Symptoms Immunological/Allergic: No Symptoms All Other Systems: Reviewed and Negative - Past Medical History Pertinent Past Medical History: Yes Neurological History: No Pertinent History ENT History: No Pertinent History Cardiac History: Angina Respiratory History: No Pertinent History Endocrine Medical History: No Pertinent History Musculoskeletal History: Arthritis, Fractures GI Medical History: No Pertinent History History: No Pertinent History Psycho-Social History: No Pertinent History Male Reproductive Disorders: No Pertinent History Other Medical History: rt elbow and dislocated shoulder - Past Surgical History Past Surgical History: Yes Neuro Surgical History: No Pertinent History Cardiac: Cardiac Catheterization Respiratory: No Pertinent History Gastrointestinal: Hernia Repair Genitourinary: No Pertinent History Musculoskeletal: Other Male Surgical History: No Pertinent History Other Surgical History: Carpal Tunnel Surgery - Social History Smoking Status: Never smoker Exposure to second hand smoke: No Drug Use: none Patient Lives Alone: No - Nursing Vital Signs Nursing Vital Signs: Initial Vital Signs Temperature 97.6 F 04/11/23 22:33 Pulse Rate 92 H 04/11/23 22:33 Respiratory Rate 17 04/11/23 22:33 Blood Pressure 141/84 04/11/23 22:33 O2 Sat by Pulse Oximetry 94 L 04/11/23 22:33 Pain Scale Pain Intensity 2 - Physical Exam General Appearance: no apparent distress, alert, thin Eye Exam: eyes nml inspection Ears, Nose, Throat Exam: normal ENT inspection Neck Exam: normal inspection, non-tender, supple, full range of motion Respiratory Exam: normal breath sounds, lungs clear, airway intact, No respir atory distress Cardiovascular Exam: regular rate/rhythm, capillary refill <2 sec, No edema Gastrointestinal/Abdomen Exam: soft, normal bowel sounds, No tenderness Extremity Exam: normal inspection, normal range of motion, No swelling, No tenderness Neurologic Exam: alert, oriented x 3, cooperative Skin Exam: normal color, warm, dry SpO2 Interpretation: borderline oxygenation O2 Delivery: Room Air - Course Nursing assessment & vital signs reviewed: Yes EKG Interpreted by Me: RATE (85), Sinus Rhythm, NORMAL AXIS, NORMAL INTERVALS, NORMAL QRS, NORMAL ST-T - Radiology Exams Chest X-ray Interpretation: Interpreted by me (b/l patchy infiltrates), Infiltrates Ordered Tests: Active Orders 24 hr Category Date Time Status [employer] Developer STAT Care 04/11/23 22:51 Completed EKG-ER Only STAT Care 04/11/23 22:49 Completed IV Insertion STAT Care 04/11/23 22:49 Completed CHEST 1 VIEW (PORTABLE) Stat Exams 04/11/23 22:50 Taken CBC W DIFF Stat Lab 04/11/23 22:55 Completed CMP Stat Lab 04/11/23 22:55 Completed D-DIMER QUANTITATIVE Stat Lab 04/11/23 22:55 Completed Lactic Acid Stat Lab 04/11/23 22:57 Completed MAGNESIUM Stat Lab 04/11/23 22:55 Completed NT PRO BNPII Stat Lab 04/11/23 22:55 Completed Medication Summary Discontinued Medications Generic Name Dose Route Start Last Admin Trade Name Vaishnavi PRN Reason Stop Dose Admin Hydrocodone Bitart/Acetaminophen Confirm 04/11/23 23:51 Hydrocodone/Acetaminophen 5 Ml Udcup Administered 04/11/23 23:52 Dose 10 ml .ROUTE .STK-MED ONE Hydrocodone Bitart/Acetaminophen 5 ml 04/12/23 10:00 04/12/23 00:00 Hydrocodone/Acetaminophen 5 Ml Udcup PO 04/12/23 22:01 5 ml BID JEIMY Administration Lab/Rad Data: Laboratory Result Diagrams 04/11/23 22:55 04/11/23 22:55 Laboratory Results 04/11/23 04/11/23 04/11/23 Range/Units 23:05 22:57 22:55 WBC (4.0-10.5) x10^3/uL RBC (4.1-5.6) x10^6/uL Hgb (12.5-18.0) g/dL Hct (42-50) % MCV (78-100) fL MCH (26-32) pg MCHC (32-36) g/dL RDW (11.5-14.0) % Plt Count (150-450) x10^3/uL MPV (7.5-11.0) fL Gran % (36.0-66.0) % Immature Gran % (Auto) (0.00-0.4) % Nucleat RBC Rel Count (0.00-0.1) % Eos # (Auto) (0-0.5) x10^3/uL Immature Gran # (Auto) (0.00-0.03) x10^3u/L Absolute Lymphs (auto) (1.0-4.6) x10^3/uL Absolute Monos (auto) (0.0-1.3) x10^3/uL Absolute Nucleated RBC (0.00-0.01) x10^3u/L Lymphocytes % (24.0-44.0) % Monocytes % (0.0-12.0) % Eosinophils % (0.00-5.0) % Basophils % (0.0-0.4) % Absolute Granulocytes (1.4-6.9) x10^3/uL Basophils # (0-0.4) x10^3/uL D-Dimer (0.0-0.50) mg/L Sodium (137-145) mmol/L Potassium (3.5-5.1) mmol/L Chloride (98-107) mmol/L Carbon Dioxide (22-30) mmol/L Anion Gap (5-15) MEQ/L BUN (9-20) mg/dL Creatinine (0.66-1.25) mg/dL Estimated GFR ML/MIN Glucose (74-106) mg/dL Lactic Acid 1.7 (0.4-2.0) Calcium (8.4-10.2) mg/dL Magnesium (1.6-2.3) mg/dL Total Bilirubin (0.2-1.3) mg/dL AST (17-59) U/L ALT (0-50) U/L Alkaline Phosphatase (38-126) U/L NT-Pro-B Natriuret Pep < 20.0 (<300) pg/mL Serum Total Protein (6.3-8.2) g/dL Albumin (3.5-5.0) g/dL Influenza Type A Ag NEGATIVE (NEGATIVE) Influenza Type B Ag NEGATIVE (NEGATIVE) RSV (PCR) NEGATIVE (NEGATIVE) SARS-CoV-2 (PCR) NEGATIVE (NEGATIVE) 04/11/23 04/11/23 04/11/23 Range/Units 22:55 22:55 22:55 WBC 8.9 (4.0-10.5) x10^3/uL RBC 4.91 (4.1-5.6) x10^6/uL Hgb 15.2 (12.5-18.0) g/dL Hct 43.2 (42-50) % MCV 88.0 (78-100) fL MCH 31.0 (26-32) pg MCHC 35.2 (32-36) g/dL RDW 13.1 (11.5-14.0) % Plt Count 306 (150-450) x10^3/uL MPV 9.6 (7.5-11.0) fL Gran % 55.1 (36.0-66.0) % Immature Gran % (Auto) 0.2 (0.00-0.4) % Nucleat RBC Rel Count 0.0 (0.00-0.1) % Eos # (Auto) 0.31 (0-0.5) x10^3/uL Immature Gran # (Auto) 0.02 (0.00-0.03) x10^3u/L Absolute Lymphs (auto) 2.74 (1.0-4.6) x10^3/uL Absolute Monos (auto) 0.83 (0.0-1.3) x10^3/uL Absolute Nucleated RBC 0.00 (0.00-0.01) x10^3u/L Lymphocytes % 30.9 (24.0-44.0) % Monocytes % 9.4 (0.0-12.0) % Eosinophils % 3.5 (0.00-5.0) % Basophils % 0.9 (0.0-0.4) % Absolute Granulocytes 4.89 (1.4-6.9) x10^3/uL Basophils # 0.08 (0-0.4) x10^3/uL D-Dimer 0.24 (0.0-0.50) mg/L Sodium 138 (137-145) mmol/L Potassium 3.7 (3.5-5.1) mmol/L Chloride 103 (98-107) mmol/L Carbon Dioxide 25 (22-30) mmol/L Anion Gap 13.2 (5-15) MEQ/L BUN 15 (9-20) mg/dL Creatinine 0.78 (0.66-1.25) mg/dL Estimated GFR > 60.0 ML/MIN Glucose 109 H (74-106) mg/dL Lactic Acid (0.4-2.0) Calcium 9.2 (8.4-10.2) mg/dL Magnesium 2.0 (1.6-2.3) mg/dL Total Bilirubin 0.70 (0.2-1.3) mg/dL AST 36 (17-59) U/L ALT 44 (0-50) U/L Alkaline Phosphatase 73 (38-126) U/L NT-Pro-B Natriuret Pep (<300) pg/mL Serum Total Protein 8.0 (6.3-8.2) g/dL Albumin 4.2 (3.5-5.0) g/dL Influenza Type A Ag (NEGATIVE) Influenza Type B Ag (NEGATIVE) RSV (PCR) (NEGATIVE) SARS-CoV-2 (PCR) (NEGATIVE) - Progress Progress: unchanged Air Movement: good Progress Note: CBC, CMP BNP and D-dimer were within normal limits. Chest x-ray showed bila teral patchy alveolar infiltrates. Patient will complete his prescription of cefdinir tomorrow so I discussed adding azithromycin for 5 days. We will also prescribe Lortab for his cough. I encouraged the patient to follow-up with his management associate next week. If symptoms worsen please return for further evaluation. Blood Culture(s) Obtained: No Antibiotics given: No Counseled pt/family regarding: lab results, diagnosis, need for follow-up, rad results Medical Desision Making - Diagnostic Testing Diagnostic test were ordered, analyzed, and reviewed by me: Yes Radiological Interpretation: Interpreted by me - Risk of complications The pt has a mod risk of morbidity or mortality based on: Need for prescription drug management - Departure Departure Disposition: Home Clinical Impression: Atypical pneumonia Condition: Stable Critical Care Time: No Referrals: MIRTHA LERMA [Primary Care Provider] - Follow up/PCP as directed Instructions: Community-acquired pneumonia in adults Prescriptions: Azithromycin [Azithromycin 250 mg Pack] 250 mg PO UD #6 tablet Hydrocodone/Acetaminophen [Hydrocodone-Acetamin 2.5-108/5 ml Solution] 5 ml PO BID PRN #70 ml MDD 10 PRN Reason: Cough
[2023-04-11 22:57] LABS: Absolute Neutrophil Ct (ANC) 4.89 x10^3/uL (1.4-6.9); BASOPHIL % 0.9 % (0.0-0.4); Basophil (Absolute #) 0.08 x10^3/uL (0-0.4); Eosinophil % 3.5 % (0.00-5.0); Eosinophil (Absolute #) 0.31 x10^3/uL (0-0.5); Hematocrit 43.2 % (42-50); Hemoglobin 15.2 g/dL (12.5-18.0); IMMATURE GRAN # 0.02 x10^3u/L (0.00-0.03); IMMATURE GRAN % 0.2 % (0.00-0.4); Lymphocyte (Absolute #) 2.74 x10^3/uL (1.0-4.6); Lymphocytes % 30.9 % (24.0-44.0); Mean Corpuscular Hgb Concent. 35.2 g/dL (32-36); Mean Platelet Volume 9.6 fL (7.5-11.0); Monocyte (Absolute #) 0.83 x10^3/uL (0.0-1.3); Monocytes % 9.4 % (0.0-12.0); Neutrophil % 55.1 % (36.0-66.0); Platelet Count 306 x10^3/uL (150-450); Red Blood Count 4.91 x10^6/uL (4.1-5.6); Red Cell Distribution Width 13.1 % (11.5-14.0); White Blood Count 8.9 x10^3/uL (4.0-10.5)
[2023-04-11 23:04] LABS: ALBUMIN 4.2 g/dL (3.5-5.0); ALKALINE PHOSPHATASE 73 U/L (38-126); ANION GAP 13.2 MEQ/L (5-15); BLOOD UREA NITROGEN 15 mg/dL (9-20); CHLORIDE 103 mmol/L (98-107); Calcium 9.2 mg/dL (8.4-10.2); Carbon Dioxide 25 mmol/L (22-30); Creatinine 1 0.78 mg/dL (0.66-1.25); EST GLOMERULAR FILTRATION RATE > 60.0 ML/MIN; Glucose 109 mg/dL (74-106); Potassium 3.7 mmol/L (3.5-5.1); SGOT/AST 36 U/L (17-59); SGPT/ALT 44 U/L (0-50); SODIUM 138 mmol/L (137-145)
[2023-04-11] MEDS ORDERED: HYDROCODONE-ACETAMIN 2.5-108/5 ML SOLUTION ONE (23:51)
[2023-04-11 23:52] LABS: INFLUENZA A NEGATIVE (NEGATIVE); INFLUENZA B NEGATIVE (NEGATIVE); RESPIRATORY SYNCTIAL VIRUS NEGATIVE (NEGATIVE); SARS-CoV-2 Xpert Express NEGATIVE (NEGATIVE)
[2023-04-12 00:02] VITALS: BP 100/69; PULSE 71; O2SAT 95
--- NOTE | 2023-04-12 07:33 | XRAY ---
Indication: Short of breath. Comparison: September 06, 2021 Portable chest inflated with minimal bibasilar fibrosis/scarring. No focal infiltrate, consolidation, or large effusion. Heart not enlarged. Bony thorax intact again with osteopenia and mild degenerative changes. Impression: Nonacute chest with chronic features.
[2023-04-12] MEDS ORDERED: HYDROCODONE-ACETAMIN 2.5-108/5 ML SOLUTION PO SCH (10:00)
== END 2023-04-12 00:16 | disposition home or self-care (01) ==
LOC: ED 22:26
DX: J18.9 Pneumonia, unspecified organism (principal); R05.9 Cough, unspecified; Z79.891 Long term (current) use of opiate analgesic; Z79.899 Other long term (current) drug therapy; Z20.828 Contact with and (suspected) exposure to other viral communicable diseases
CPT/HCPCS: 0241U; 36000; 36415; 71045; 80053; 83605; 83735; 83880; 85025; 85379; 93005; 93041; 99284; A9270-GY

== ENCOUNTER 2025-08-25 13:56 | Emergency (ER) | payer MEDICARE ==
--- NOTE | 2025-08-25 14:18 | ERPHSYRPT ---
- History of Present Illness Patient Subjective Stated Complaint: Pt. states, "Chest pain woke me up early this morning in the middle of my chest and moves up into my right shoulder. It has been there ever since." Triage Nursing Assessment: Pt. brought to room in W/C by security, pt. transferred to bed without assist. He is A&Ox3, Skin P/W/D, Resp. even unlabored, No edema. Able to move all four ext. Physician History: Chest pain, symptoms woke patient up this morning, has had symptoms over the last several days, symptoms located in the upper aspect of the chest radiating towards the right, he notes shortness of breath, last stress test more than a couple years ago, no previous interventions, no new medications Timing/Duration: today Activities at Onset: sleep Quality: tightness Severity of Pain-Max: moderate Severity of Pain-Current: moderate Modifying Factors: Improves With: nothing Nitro Today/Relief: no nitro taken today Aspirin Treatment Today: no aspirin today Allergies/Adverse Reactions: prednisone Adverse Reaction (Intermediate, Verified 04/11/23 22:37) makes him "jittery" Home Medications: Loratadine 10 mg [Claritin 10 mg] 10 mg PO DAILY 05/17/22 [History] Fluticasone Propion/Salmeterol [Fluticasone-Salmeterol 250-50] 2 puffs IH BID 08/25/25 [History] Gabapentin [Neurontin ] 300 mg PO BID 08/25/25 [History] Hydrochlorothiazide 25 mg [hydroDIURIL 25 MG] 12.5 mg PO DAILY 08/25/25 [History] Simvastatin 20Mg [Zocor 20Mg] 20 mg PO DAILY 08/25/25 [History] Hx Tetanus, Diphtheria Vaccination/Date Given: No Hx Influenza Vaccination/Date Given: No Hx Pneumococcal Vaccination/Date Given: No Immunizations Up to Date: No Travel Risk - International Travel Have you traveled outside of the country in past 3 weeks: No - Emerging Infectious Disease Are you exhibiting symptoms associated with any current EIDs: No - Past Medical History Pertinent Past Medical History: Yes Neurological History: No Pertinent History ENT History: No Pertinent History Cardiac History: Angina, High Cholesterol Respiratory History: No Pertinent History Endocrine Medical History: No Pertinent History Musculoskeletal History: Arthritis, Fractures GI Medical History: No Pertinent History History: No Pertinent History Psycho-Social History: No Pertinent History Male Reproductive Disorders: No Pertinent History Other Medical History: rt elbow and dislocated shoulder - Past Surgical History Past Surgical History: Yes Neuro Surgical History: No Pertinent History Cardiac: Cardiac Catheterization Respiratory: No Pertinent History Gastrointestinal: Hernia Repair Genitourinary: No Pertinent History Musculoskeletal: Other Male Surgical History: No Pertinent History Other Surgical History: Carpal Tunnel Surgery - Social History Smoking Status: Never smoker Exposure to second hand smoke: No Drug Use: none - Social Determinants of Health Will the patient participate in the screening: Declined to provide - Nursing Vital Signs Nursing Vital Signs: Initial Vital Signs Temperature 98.1 F 08/25/25 13:56 Pulse Rate 85 08/25/25 13:56 Respiratory Rate 12 08/25/25 13:56 Blood Pressure 154/97 08/25/25 13:56 O2 Sat by Pulse Oximetry 97 08/25/25 13:56 Pain Scale Pain Intensity 4 - Physical Exam General Appearance: no apparent distress, alert Eye Exam: PERRL/EOMI, eyes nml inspection Ears, Nose, Throat Exam: normal ENT inspection, moist mucous membranes Neck Exam: normal inspection, non-tender, supple, full range of motion Respiratory Exam: normal breath sounds, lungs clear, No respiratory distress Cardiovascular Exam: regular rate/rhythm, normal heart sounds Gastrointestinal/Abdomen Exam: soft, No tenderness, No mass Back Exam: normal inspection, No CVA tenderness, No vertebral tenderness Extremity Exam: normal inspection, normal range of motion Neurologic Exam: alert, oriented x 3, cooperative, normal mood/affect, sensation nml, No motor deficits Skin Exam: normal color, warm, dry SpO2 Interpretation: normal SpO2: 95 Ordered Tests: Active Orders 24 hr Category Date Time Status EKG-ER Only STAT Care 08/25/25 14:11 Active CHEST 1 VIEW (PORTABLE) Stat Exams 08/25/25 14:11 Completed CBC W DIFF Stat Lab 08/25/25 14:00 Completed CMP Stat Lab 08/25/25 14:00 Completed TROPONIN Q4H Lab 08/25/25 14:00 Completed TROPONIN Q4H Lab 08/25/25 16:12 Completed TROPONIN Q4H Lab 08/25/25 22:15 Ordered Medication Summary Discontinued Medications Generic Name Dose Route Start Last Admin Trade Name Freq PRN Reason Stop Dose Admin Acetaminophen 500 mg 08/25/25 16:34 08/25/25 16:39 Acetaminophen 500 Mg Tablet PO 08/25/25 16:35 500 mg STAT STA Administration Acetaminophen Confirm 08/25/25 16:39 Acetaminophen 500 Mg Tablet Administered 08/25/25 16:40 Dose 500 mg .ROUTE .[facility] Lab/Rad Data: Laboratory Result Diagrams 08/25/25 14:00 08/25/25 14:00 Laboratory Results 08/25/25 08/25/25 08/25/25 Range/Units 16:12 14:00 14:00 WBC (4.23-9.07) x10^3/uL RBC (4.63-6.08) x10^6/uL Hgb (13.7-17.5) g/dL Hct (40.1-51.0) % MCV (79.0-92.2) fL MCH (25.7-32.2) pg MCHC (32.3-36.5) g/dL RDW (11.6-14.4) % Plt Count (163-337) x10^3/uL MPV (9.4-12.4) fL Gran % (34.0-67.9) % Immature Gran % (Auto) (0.001-0.429) % Nucleat RBC Rel Count (0.00-0.2) % Eos # (Auto) (0.04-0.54) x10^3/uL Immature Gran # (Auto) (0.001-0.031) x10^3u/L Absolute Lymphs (auto) (1.32-3.57) x10^3/uL Absolute Monos (auto) (0.30-0.82) x10^3/uL Absolute Nucleated RBC (0.00-0.012) x10^3u/L Lymphocytes % (21.8-53.1) % Monocytes % (5.3-12.2) % Eosinophils % (0.8-7.0) % Basophils % (0.2-1.2) % Absolute Granulocytes (1.78-5.38) x10^3/uL Basophils # (0.01-0.08) x10^3/uL Sodium 137 (135-145) mmol/L Potassium 3.7 (3.5-5.1) mmol/L Chloride 104 (98-107) mmol/L Carbon Dioxide 25 (22-30) mmol/L Anion Gap 12.2 (5-15) MEQ/L BUN 23 H (9-20) mg/dL Creatinine 0.95 (0.66-1.25) mg/dL Estimated GFR 85.0 ML/MIN Glucose 104 (74-106) mg/dL Calcium 10.0 (8.4-10.2) mg/dL Total Bilirubin 0.70 (0.2-1.3) mg/dL AST 36 (17-59) U/L ALT 45 (0-50) U/L Alkaline Phosphatase 87 (38-126) U/L Troponin I < 0.012 < 0.012 (0.000-0.033) ng/mL Serum Total Protein 7.5 (6.3-8.2) g/dL Albumin 4.3 (3.5-5.0) g/dL 08/25/25 Range/Units 14:00 WBC 7.6 (4.23-9.07) x10^3/uL RBC 5.30 (4.63-6.08) x10^6/uL Hgb 16.0 (13.7-17.5) g/dL Hct 47.1 (40.1-51.0) % MCV 88.9 (79.0-92.2) fL MCH 30.2 (25.7-32.2) pg MCHC 34.0 (32.3-36.5) g/dL RDW 12.8 (11.6-14.4) % Plt Count 246 (163-337) x10^3/uL MPV 9.8 (9.4-12.4) fL Gran % 55.8 (34.0-67.9) % Immature Gran % (Auto) 0.4 (0.001-0.429) % Nucleat RBC Rel Count 0.0 (0.00-0.2) % Eos # (Auto) 0.14 (0.04-0.54) x10^3/uL Immature Gran # (Auto) 0.03 (0.001-0.031) x10^3u/L Absolute Lymphs (auto) 2.35 (1.32-3.57) x10^3/uL Absolute Monos (auto) 0.79 (0.30-0.82) x10^3/uL Absolute Nucleated RBC 0.00 (0.00-0.012) x10^3u/L Lymphocytes % 31.1 (21.8-53.1) % Monocytes % 10.4 (5.3-12.2) % Eosinophils % 1.9 (0.8-7.0) % Basophils % 0.4 (0.2-1.2) % Absolute Granulocytes 4.22 (1.78-5.38) x10^3/uL Basophils # 0.03 (0.01-0.08) x10^3/uL Sodium (135-145) mmol/L Potassium (3.5-5.1) mmol/L Chloride (98-107) mmol/L Carbon Dioxide (22-30) mmol/L Anion Gap (5-15) MEQ/L BUN (9-20) mg/dL Creatinine (0.66-1.25) mg/dL Estimated GFR ML/MIN Glucose (74-106) mg/dL Calcium (8.4-10.2) mg/dL Total Bilirubin (0.2-1.3) mg/dL AST (17-59) U/L ALT (0-50) U/L Alkaline Phosphatase (38-126) U/L Troponin I (0.000-0.033) ng/mL Serum Total Protein (6.3-8.2) g/dL Albumin (3.5-5.0) g/dL - Progress Progress Note: 08/25/25 17:42 Discussed results, the states that the patient was in the sil[place] and going up and down as well as loading the area with green beans yesterday, he will be discharged follow-up on an outpatient basis - Departure Departure Disposition: Home Clinical Impression: Chest wall pain Condition: Stable Critical Care Time: No Referrals: MIRTHA LERMA [Primary Care Provider, [facility]] - Follow up with PCP 7 days Instructions: Costochondritis Prescriptions: methocarbamoL [Methocarbamol] 750 mg PO TID PRN #15 tablet PRN Reason: Pain
[2025-08-25 14:19] VITALS: TEMP 98.1
[2025-08-25 14:26] LABS: BASOPHIL % 0.4 % (0.2-1.2); Basophil (Absolute #) 0.03 x10^3/uL (0.01-0.08); Eosinophil (Absolute #) 0.14 x10^3/uL (0.04-0.54); Hematocrit 47.1 % (40.1-51.0); Hemoglobin 16.0 g/dL (13.7-17.5); IMMATURE GRAN # 0.03 x10^3u/L (0.001-0.031); IMMATURE GRAN % 0.4 % (0.001-0.429); Lymphocyte (Absolute #) 2.35 x10^3/uL (1.32-3.57); Mean Corpuscular Hemoglobin 30.2 pg (25.7-32.2); Mean Corpuscular Hgb Concent. 34.0 g/dL (32.3-36.5); Monocyte (Absolute #) 0.79 x10^3/uL (0.30-0.82); NUCLEATED RBC # 0.00 x10^3u/L (0.00-0.012); NUCLEATED RBC % 0.0 % (0.00-0.2); Platelet Count 246 x10^3/uL (163-337); Red Blood Count 5.30 x10^6/uL (4.63-6.08); White Blood Count 7.6 x10^3/uL (4.23-9.07)
--- NOTE | 2025-08-25 14:27 | XRAY ---
Indication: Chest pain. Comparison: November 27, 2023 Portable chest less inflated and remains clear. Heart not enlarged. Bony thorax intact again with osteopenia and mild degenerative changes. Impression: Continued nonacute chest with chronic bony findings.
[2025-08-25 14:42] LABS: Calcium 10.0 mg/dL (8.4-10.2); Carbon Dioxide 25.0 mmol/L (22-30); Creatinine 1 0.95 mg/dL (0.66-1.25); EST GLOMERULAR FILTRATION RATE 85.0 ML/MIN; Glucose 104.0 mg/dL (74-106); Potassium 3.7 mmol/L (3.5-5.1); SGOT/AST 36.0 U/L (17-59); SGPT/ALT 45.0 U/L (0-50); Total Protein 7.5 g/dL (6.3-8.2)
[2025-08-25] MEDS ORDERED: TYLENOL EXTRA STRENGTH 500 MG ONE (16:39)
[2025-08-25] MEDS: TYLENOL EXTRA STRENGTH 500 MG PO STA (16:39)
[2025-08-25 17:35] VITALS: BP 122/76; PULSE 70; RESP 15
[2025-08-25 17:45] VITALS: O2SAT 95
== END 2025-08-25 17:53 | disposition home or self-care (01) ==
LOC: ED 13:56
DX: R07.89 Other chest pain (principal); R06.02 Shortness of breath; Z79.899 Other long term (current) drug therapy